=== PATIENT | female | born 1965 | race Caucasian/White ===

== ENCOUNTER 2018-04-01 18:06 | Emergency (ER) | payer MEDICARE, OTHER ==
[~2018-04-01] VITALS: Ht 162.6 cm; Wt 70.0 kg
[2018-04-01 18:13] VITALS: BP 130/80
[2018-04-01 18:56] LABS: RAPID INFLUENZA A Negative (Negative); RAPID INFLUENZA B Negative (Negative)
== END 2018-04-01 19:16 | disposition home or self-care (01) ==
LOC: ED 19:00
DX: J06.9 Acute upper respiratory infection, unspecified (principal); B34.9 Viral infection, unspecified; F17.200 Nicotine dependence, unspecified, uncomplicated; Z88.6 Allergy status to analgesic agent
CPT/HCPCS: 71046; 87400; 99284

== ENCOUNTER 2018-07-31 04:29 | Emergency (ER) | payer OTHER ==
[~2018-07-31] VITALS: Ht 162.6 cm; Wt 69.9 kg
--- NOTE | 2018-07-31 05:01 | NUR ---
PT PRESENTED WITH C/O PAINFUL URINATION. MONITORS APPLIED, SIDERAILS UP X2, CALL LIGHT WITHIN REACH
--- NOTE | 2018-07-31 05:06 | NUR ---
URINE SAMPLE TAKEN TO LAB
[2018-07-31] MEDS ORDERED: LIRA3PEN PO (05:16)
[2018-07-31 05:17] LABS: MICROSCOPIC AUTO
[2018-07-31] MEDS ORDERED: LORA-446 PO (05:18)
[2018-07-31] MEDS ORDERED: TRAZ50TA66 PO (05:18)
[2018-07-31] MEDS ORDERED: ZOLP10TA PO (05:18)
[2018-07-31] MEDS ORDERED: PHENAZOPYRIDINE 200 MG TABLET ONE (05:22)
--- NOTE | 2018-07-31 05:24 | NUR ---
PT MEDICATED PER MAR
[2018-07-31] MEDS ORDERED: PHENAZOPYRIDINE 200 MG TABLET PO ONE (05:30)
--- NOTE | 2018-07-31 05:49 | NUR ---
pt to ct
[2018-07-31 05:51] LABS: BASOPHILS # (AUTO) 0.07 x10^3/uL (0-0.1); BASOPHILS % (AUTO) 1 % (0-1); EOSINOPHILS # (AUTO) 0.17 x10^3/uL (0-0.4); EOSINOPHILS % (AUTO) 2 % (1-7); LYMPHOCYTES # (AUTO) 2.28 x10^3/uL (1-3.4); LYMPHOCYTES % (AUTO) 29 % (22-44); MD NO; MEAN CORPUSCULAR HEMOGLOBIN 30.7 pg (27.0-34.8); MEAN CORPUSCULAR HGB CONC 32.7 g/dL (32.4-35.8); MEAN CORPUSCULAR VOLUME 93.7 fL (80-100); MEAN PLATELET VOLUME 8.1 fL (7.4-10.4); MONOCYTES % (AUTO) 8 % (2-9); NEUTROPHILS # (AUTO) 4.79 x10^3/uL (1.8-6.8); NEUTROPHILS % (AUTO) 61 % (42-75); PLATELET COUNT 244 x10^3/uL (130-400); RED BLOOD COUNT 4.31 x10^6/uL (3.82-5.3); RED CELL DISTRIBUTION WIDTH 13.4 % (9.6-15.2)
[2018-07-31 05:58] LABS: ANION GAP 6 mmol/L (5-15); CALCIUM 8.7 mg/dL (8.5-10.1); CHLORIDE 110 mmol/L (98-107)
[2018-07-31 06:10] VITALS: BP 131/85
--- NOTE | 2018-07-31 06:10 | NUR ---
pt sitting up on gurney, denies needs, monitors in place, call light within reach. awaiting ct result
--- NOTE | 2018-07-31 07:02 | NUR ---
report given to nitin simmons
--- NOTE | 2018-07-31 07:09 | NUR ---
Patient given discharge instructions and they have confirmed that they understand the instructions. Patient ambulatory with steady gait.
== END 2018-07-31 07:10 | disposition home or self-care (01) ==
LOC: ED 07:05
DX: R30.0 Dysuria (principal); F10.220 Alcohol dependence with intoxication, uncomplicated; R31.9 Hematuria, unspecified; F17.210 Nicotine dependence, cigarettes, uncomplicated
CPT/HCPCS: 36415; 74176; 80048; 81001; 82040; 85025; 99284

== ENCOUNTER 2018-09-20 23:41 | Emergency (ER) | payer OTHER | END 2018-09-20 23:47 | disposition left against medical advice (07) | LOC: ED 23:42 | DX: Z53.21 Procedure and treatment not carried out due to patient leaving prior to being seen by health care provider (principal) ==

== ENCOUNTER 2018-10-05 21:20 | Emergency (ER) | payer OTHER ==
[~2018-10-05] VITALS: Ht 162.6 cm; Wt 68.4 kg
[2018-10-05 21:29] VITALS: BP 106/75
== END 2018-10-05 22:13 | disposition home or self-care (01) ==
LOC: ED 21:45
DX: R05 Cough (principal); F17.200 Nicotine dependence, unspecified, uncomplicated; F17.210 Nicotine dependence, cigarettes, uncomplicated
CPT/HCPCS: 99281; 99406

== ENCOUNTER 2018-10-24 04:42 | Emergency (ER) | payer OTHER ==
[~2018-10-24] VITALS: Ht 162.6 cm; Wt 66.7 kg
[~2018-10-24 04:42] MED LIST: LIRA3PEN PO; LORA-446 PO; TRAZ50TA66 PO; ZOLP10TA PO
--- NOTE | 2018-10-24 05:03 | NUR ---
PT. INSTRUCTED ON CLEAN CATCH UA, HAT PROVIDED FOR STOOL SAMPLE. PT. ATTEMPTING TO PROVIDE BOTH AT THIS TIME. PT. STATES "I HAVE HAD DIARRHEA FOR 3, 5, 2, 7, I DON'T EVEN KNOW HOW MANY DAYS BUT I DO KNOW I HAVE SALMONELLA".
--- NOTE | 2018-10-24 05:15 | NUR ---
STOOL AND URINE SAMPLES COLLECTED AND WALKED TO LAB. LACIE PONCE AT BS TO PANTERA PT. AND DISCUSS POC.
[2018-10-24] MEDS ORDERED: ONDANSETRON 2MG/ML, 2ML IVPush ONE (05:30)
[2018-10-24] MEDS ORDERED: SODIUM CHLORIDE FLUSH 10ML SYR IVF ONE (05:30)
[2018-10-24] MEDS ORDERED: MORPHINE SULFATE 4 MG/ML, 1ML IVPush PRN (05:30)
[2018-10-24 05:35] LABS: BASOPHILS # (AUTO) 0.04 x10^3/uL (0-0.1); BASOPHILS % (AUTO) 0 % (0-1); EOSINOPHILS # (AUTO) 0.43 x10^3/uL (0-0.4); EOSINOPHILS % (AUTO) 4 % (1-7); LYMPHOCYTES # (AUTO) 1.93 x10^3/uL (1-3.4); LYMPHOCYTES % (AUTO) 16 % (22-44); MD NO; MEAN CORPUSCULAR HGB CONC 33.1 g/dL (32.4-35.8); MEAN CORPUSCULAR VOLUME 96.7 fL (80-100); MEAN PLATELET VOLUME 7.4 fL (7.4-10.4); MONOCYTES # (AUTO) 0.87 x10^3/uL (0.2-0.8); MONOCYTES % (AUTO) 7 % (2-9); NEUTROPHILS # (AUTO) 9.11 x10^3/uL (1.8-6.8); NEUTROPHILS % (AUTO) 74 % (42-75); PLATELET COUNT 290 x10^3/uL (130-400); RED BLOOD COUNT 4.37 x10^6/uL (3.82-5.3); RED CELL DISTRIBUTION WIDTH 14.4 % (9.6-15.2)
--- NOTE | 2018-10-24 05:39 | NUR ---
PT. TO US VIA [facility].
[2018-10-24 05:48] LABS: CHLORIDE 111 mmol/L (98-107)
[2018-10-24 05:55] LABS: ALANINE AMINOTRANSFERASE 29 U/L (12-78); ALBUMIN 3.3 g/dL (3.4-5.0); ALKALINE PHOSPHATASE 91 U/L (45-117); ANION GAP 6 mmol/L (5-15); BILIRUBIN,TOTAL 0.3 mg/dL (0.2-1.0); CALCIUM 8.3 mg/dL (8.5-10.1); CREATININE 0.73 mg/dL (0.55-1.02); TOTAL PROTEIN 6.7 g/dL (6.4-8.2)
[2018-10-24 06:14] LABS: CULTURE INDICATED? YES; MICROSCOPIC INDICATED
--- NOTE | 2018-10-24 06:48 | NUR ---
RECEIVED BEDSIDE REPORT FROM CHRIS GARCIA
--- NOTE | 2018-10-24 07:11 | NUR ---
PT EDUCATED REGARDING D/C INFORMATION. PT ALSO EDUCATED REGARDING PRESCRIPTIONS. PT STATES "I DON'T HAVE MY INS CARD SO I WON'T GET THE MEDS." PT EDUCATED REGARDING THE IMPORTANCE OF ABX TREATMENT. 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 PT REQUESTS TO WALK TO DISCHARGE BY SELF WITHOUT ASSISTANCE. NO ACUTE DISTRESS NOTED.
[2018-10-24 07:13] VITALS: BP 95/65
--- NOTE | 2018-10-24 07:26 | NUR ---
PT LEFT WITH ALL PERSONAL BELONGINGS. PT WALKED TO D/C DESK
[2018-10-24 07:37] LABS: CLOSTRIDIUM DIFFICILE ANTIGEN NEGATIVE; CLOSTRIDIUM DIFFICILE TOXIN NEGATIVE (Negative)
== END 2018-10-24 07:28 | disposition home or self-care (01) ==
LOC: ED 05:39
DX: K52.9 Noninfective gastroenteritis and colitis, unspecified (principal); N30.00 Acute cystitis without hematuria; F17.200 Nicotine dependence, unspecified, uncomplicated
CPT/HCPCS: 36415; 76700; 80053; 81001; 83690; 85025; 87077; 87086; 87186; 87324; 89055; 99284

== ENCOUNTER 2019-04-06 07:59 | Emergency (ER) | payer OTHER ==
[~2019-04-06] VITALS: Ht 162.6 cm; Wt 67.0 kg
[2019-04-06 08:00] VITALS: BP 118/74
[2019-04-06 08:58] LABS: BASOPHILS # (AUTO) 0.05 x10^3/uL (0-0.1); BASOPHILS % (AUTO) 1 % (0-1); EOSINOPHILS # (AUTO) 0.15 x10^3/uL (0-0.4); EOSINOPHILS % (AUTO) 1 % (1-7); LYMPHOCYTES % (AUTO) 18 % (22-44); MD NO; MEAN CORPUSCULAR HEMOGLOBIN 31.5 pg (27.0-34.8); MEAN CORPUSCULAR HGB CONC 33.1 g/dL (32.4-35.8); MEAN CORPUSCULAR VOLUME 95.2 fL (80-100); MEAN PLATELET VOLUME 6.8 fL (7.4-10.4); MONOCYTES # (AUTO) 0.38 x10^3/uL (0.2-0.8); MONOCYTES % (AUTO) 4 % (2-9); NEUTROPHILS # (AUTO) 8.23 x10^3/uL (1.8-6.8); NEUTROPHILS % (AUTO) 77 % (42-75); PLATELET COUNT 355 x10^3/uL (130-400); RED BLOOD COUNT 4.69 x10^6/uL (3.82-5.3); RED CELL DISTRIBUTION WIDTH 13.9 % (9.6-15.2)
[2019-04-06 09:07] LABS: ALBUMIN 3.6 g/dL (3.4-5.0); ANION GAP 8 mmol/L (5-15); CHLORIDE 109 mmol/L (98-107); CREATININE 0.63 mg/dL (0.55-1.02); SALICYLATE LEVEL 4.7 mg/dL (2.8-20.0)
--- NOTE | 2019-04-06 10:03 | NUR ---
Report recieved from Guzman PEREZ. pt appears to be resting comfortably in bed with no signs of distress. Respiration un-impeeded. Sitter outside of room with clear view of pt. SI precautions maintianed.
[2019-04-06 10:10] LABS: AMPHETAMINE SCREEN, URINE Negative (Negative); BARBITURATE SCREEN, URINE Negative (Negative); BENZODIAZEPINE SCREEN, URINE Negative (Negative); CANNABINOID SCREEN, URINE Positive (Negative); COCAINE SCREEN, URINE Negative (Negative); METHADONE SCREEN, URINE Negative (Negative); OPIATE SCREEN, URINE Negative (Negative)
[2019-04-06 10:18] LABS: MICROSCOPIC INDICATED
[2019-04-06 10:29] LABS: CULTURE INDICATED? YES
--- NOTE | 2019-04-06 10:58 | NUR ---
MD at bedside discussing POC
[2019-04-06] MEDS ORDERED: CEFTRIAXONE 1,000 MG IM ONE (11:00)
[2019-04-06] MEDS ORDERED: HYDROXYZINE PAMOATE 50MG CAP PO PRN (11:30)
--- NOTE | 2019-04-06 12:30 | NUR ---
SI food tray given to pt. Sitter outside of room with unobstructed view of pt. SI precautions maintained. pt is a legal hold.
[2019-04-06] MEDS ORDERED: CEFTRIAXONE 1,000 MG ONE (12:44)
[2019-04-06] MEDS ORDERED: LIDOCAINE-MPF 1%, 2ML ONE (12:44)
--- NOTE | 2019-04-06 13:00 | NUR ---
Confirmed no Blood cultures prior to IM Rocephin administer. verablized no blood cultures, ok to give ABX now.
--- NOTE | 2019-04-06 15:52 | NUR ---
Report given to Radha. All questions and concerns addressed and answered.
[2019-04-06] MEDS ORDERED: MIRTAZAPINE 15 MG TABLET PO SCH (21:00)
== END 2019-04-06 17:04 ==
LOC: ED 09:00
DX: R45.851 Suicidal ideations (principal); N30.00 Acute cystitis without hematuria; B34.9 Viral infection, unspecified
CPT/HCPCS: 36415; 71046; 80048; 80307; 81001; 82040; 85025; 87077; 87086; 87186; 96372; 99285; J0696

== ENCOUNTER 2019-04-06 15:52 | Inpatient (IN) | payer MEDICARE ==
[~2019-04-06] VITALS: Ht 162.6 cm; Wt 73.3 kg
[2019-04-06] MEDS ORDERED: BISACODYL 10 MG SUPP PR PRN (16:30)
[2019-04-06] MEDS ORDERED: POLYETHYLENE GLYCOL 17 GM PACKET PO PRN (16:30)
[2019-04-06 17:54] VITALS: BP 115/75
[2019-04-06 18:20] LABS: CHOL/HDL RATIO 2.7; FREE T4 (FREE THYROXINE) 1.09 ng/dL (0.76-1.46); LDL/HDL RATIO 1.3 (0.5-3.0)
[2019-04-06 18:28] VITALS: BP 115/75
[2019-04-06 19:42] VITALS: BP 100/60
[2019-04-06] MEDS: NICOTINE 14MG/24 HR PATCH.TD24 TD SCH (19:48)
[2019-04-06] MEDS: MIRTAZAPINE 15 MG TABLET PO SCH (20:08)
[2019-04-07 01:15] LABS: ALANINE AMINOTRANSFERASE 27 U/L (12-78)
[2019-04-07 01:18] LABS: ALKALINE PHOSPHATASE 112 U/L (45-117); BILIRUBIN,TOTAL 0.2 mg/dL (0.2-1.0); TOTAL PROTEIN 7.2 g/dL (6.4-8.2)
[2019-04-07 01:20] LABS: ALBUMIN 3.6 g/dL (3.4-5.0); BILIRUBIN, DIRECT < 0.1 mg/dL (0.1-0.2); BILIRUBIN,INDIRECT 0.1 mg/dL (0.0-2.0)
[2019-04-07 07:30] VITALS: BP 116/76
[2019-04-07] MEDS: HYDROXYZINE PAMOATE 50MG CAP PO PRN ×2 (08:16→12:50)
[2019-04-07] MEDS: ACETAMINOPHEN 325 MG TABLET PO PRN ×3 (08:16→20:11)
[2019-04-07] MEDS: CEFDINIR 300 MG CAPSULE PO SCH ×2 (08:43→20:11)
[2019-04-07] MEDS ORDERED: TRAZODONE 50MG TABLET PO PRN (14:30)
[2019-04-07] MEDS ORDERED: OMNIPAQUE 350 MG/ML, 100ML BOTTLE ONE (15:10)
[2019-04-07 19:28] VITALS: BP 120/74
[2019-04-07] MEDS: NICOTINE 14MG/24 HR PATCH.TD24 TD SCH (19:57)
[2019-04-07] MEDS: PRAZOSIN 1 MG CAPSULE PO SCH (20:11)
[2019-04-07] MEDS: MIRTAZAPINE 15 MG TABLET PO SCH (20:12)
[2019-04-08 07:16] VITALS: BP 105/63
[2019-04-08] MEDS: CEFDINIR 300 MG CAPSULE PO SCH ×2 (10:14→20:21)
[2019-04-08] MEDS: NICOTINE 14MG/24 HR PATCH.TD24 TD SCH (10:15)
[2019-04-08] MEDS: HYDROXYZINE PAMOATE 50MG CAP PO PRN (10:21)
[2019-04-08] MEDS: ACETAMINOPHEN 325 MG TABLET PO PRN ×2 (10:28→14:48)
[2019-04-08] MEDS: METHOCARBAMOL 500 MG TABLET PO PRN ×2 (14:48→20:21)
[2019-04-08 19:42] VITALS: BP 118/79
[2019-04-08] MEDS ORDERED: ZOLPIDEM 5MG TABLET ONE (20:11)
[2019-04-08] MEDS: MIRTAZAPINE 15 MG TABLET PO SCH (20:22)
[2019-04-08] MEDS: PRAZOSIN 1 MG CAPSULE PO SCH (20:22)
[2019-04-09 07:26] VITALS: BP 107/72
[2019-04-09] MEDS: CEFDINIR 300 MG CAPSULE PO SCH ×2 (08:23→20:42)
[2019-04-09] MEDS: NICOTINE 14MG/24 HR PATCH.TD24 TD SCH (08:25)
[2019-04-09] MEDS: METHOCARBAMOL 500 MG TABLET PO PRN ×2 (08:31→20:42)
[2019-04-09] MEDS: ACETAMINOPHEN 325 MG TABLET PO PRN (08:32)
[2019-04-09 19:36] VITALS: BP 108/75
[2019-04-09] MEDS ORDERED: ZOLPIDEM 5MG TABLET ONE (20:40)
[2019-04-09] MEDS: PRAZOSIN 1 MG CAPSULE PO SCH (20:43)
[2019-04-09] MEDS: MIRTAZAPINE 15 MG TABLET PO SCH (20:44)
[2019-04-09] MEDS ORDERED: RISPERIDONE 1 MG TABLET PO SCH (21:00)
[2019-04-10 07:25] VITALS: BP 114/81
[2019-04-10] MEDS: NICOTINE 14MG/24 HR PATCH.TD24 TD SCH (08:07)
[2019-04-10] MEDS: HYDROXYZINE PAMOATE 50MG CAP PO PRN ×3 (08:07→20:32)
[2019-04-10] MEDS: CEFDINIR 300 MG CAPSULE PO SCH ×2 (08:08→20:32)
[2019-04-10] MEDS: METHOCARBAMOL 500 MG TABLET PO PRN ×3 (08:08→20:32)
[2019-04-10] MEDS: ACETAMINOPHEN 325 MG TABLET PO PRN (14:35)
[2019-04-10 19:56] VITALS: BP 104/68
[2019-04-10] MEDS: TRAZODONE 50MG TABLET PO PRN (20:32)
[2019-04-10] MEDS: PRAZOSIN 1 MG CAPSULE PO SCH (20:32)
[2019-04-10] MEDS: MIRTAZAPINE 15 MG TABLET PO SCH (20:33)
[2019-04-10] MEDS ORDERED: ZOLPIDEM 5MG TABLET ONE (22:56)
[2019-04-10] MEDS: ZOLPIDEM 10MG TABLET PO PRN (22:58)
[2019-04-11 07:07] VITALS: BP 96/67
[2019-04-11] MEDS: NICOTINE 14MG/24 HR PATCH.TD24 TD SCH (08:20)
[2019-04-11] MEDS: METHOCARBAMOL 500 MG TABLET PO PRN ×2 (08:20→18:25)
[2019-04-11] MEDS: ACETAMINOPHEN 325 MG TABLET PO PRN ×2 (08:20→18:25)
[2019-04-11] MEDS: HYDROXYZINE PAMOATE 50MG CAP PO PRN ×2 (08:20→18:25)
[2019-04-11 19:28] VITALS: BP 107/75
[2019-04-11] MEDS ORDERED: ZOLPIDEM 5MG TABLET ONE (20:25)
[2019-04-11] MEDS: PRAZOSIN 1 MG CAPSULE PO SCH (20:42)
[2019-04-11] MEDS: MIRTAZAPINE 15 MG TABLET PO SCH (20:42)
[2019-04-11] MEDS: TRAZODONE 50MG TABLET PO PRN (20:43)
[2019-04-11] MEDS: ZOLPIDEM 10MG TABLET PO PRN (20:43)
[2019-04-12 07:53] VITALS: BP 95/60
[2019-04-12] MEDS: NICOTINE 14MG/24 HR PATCH.TD24 TD SCH (08:58)
[2019-04-12] MEDS: HYDROXYZINE PAMOATE 50MG CAP PO PRN ×2 (08:58→14:06)
[2019-04-12] MEDS: ACETAMINOPHEN 325 MG TABLET PO PRN ×3 (08:58→21:54)
[2019-04-12] MEDS: METHOCARBAMOL 500 MG TABLET PO PRN ×3 (08:58→21:54)
[2019-04-12 19:50] VITALS: BP 111/71
[2019-04-12] MEDS ORDERED: ZOLPIDEM 5MG TABLET ONE (20:19)
[2019-04-12] MEDS: PRAZOSIN 1 MG CAPSULE PO SCH (20:55)
[2019-04-12] MEDS: MIRTAZAPINE 15 MG TABLET PO SCH (20:56)
[2019-04-12] MEDS: TRAZODONE 50MG TABLET PO PRN (20:56)
[2019-04-13 07:16] VITALS: BP 103/69
[2019-04-13] MEDS: NICOTINE 14MG/24 HR PATCH.TD24 TD SCH (09:01)
[2019-04-13] MEDS: ACETAMINOPHEN 325 MG TABLET PO PRN ×3 (09:20→22:14)
[2019-04-13] MEDS: METHOCARBAMOL 500 MG TABLET PO PRN ×3 (09:20→22:15)
[2019-04-13] MEDS ORDERED: HYDROXYZINE PAMOATE 25MG CAP ONE ×2 (09:28→15:19)
[2019-04-13] MEDS: HYDROXYZINE PAMOATE 50MG CAP PO PRN ×3 (09:29→22:31)
[2019-04-13 19:51] VITALS: BP 105/71
[2019-04-13] MEDS ORDERED: ZOLPIDEM 5MG TABLET ONE (20:33)
[2019-04-13] MEDS: PRAZOSIN 1 MG CAPSULE PO SCH (20:36)
[2019-04-13] MEDS: TRAZODONE 50MG TABLET PO PRN (20:36)
[2019-04-13] MEDS: ZOLPIDEM 10MG TABLET PO PRN (20:36)
[2019-04-13] MEDS: MIRTAZAPINE 15 MG TABLET PO SCH (21:04)
[2019-04-14 07:19] VITALS: BP 112/78
[2019-04-14] MEDS: ACETAMINOPHEN 325 MG TABLET PO PRN ×2 (08:14→16:36)
[2019-04-14] MEDS: HYDROXYZINE PAMOATE 50MG CAP PO PRN ×2 (08:14→16:36)
[2019-04-14] MEDS: NICOTINE 14MG/24 HR PATCH.TD24 TD SCH (08:14)
[2019-04-14] MEDS: METHOCARBAMOL 500 MG TABLET PO PRN ×2 (08:14→16:36)
[2019-04-14 19:23] VITALS: BP 129/86
[2019-04-14] MEDS: TRAZODONE 50MG TABLET PO PRN (20:25)
[2019-04-14] MEDS: ZOLPIDEM 10MG TABLET PO PRN (20:25)
[2019-04-14] MEDS: PRAZOSIN 1 MG CAPSULE PO SCH (20:25)
[2019-04-14] MEDS: MIRTAZAPINE 15 MG TABLET PO SCH (20:26)
[2019-04-15] MEDS ORDERED: HYDROXYZINE PAMOATE 25MG CAP ONE (04:42)
[2019-04-15] MEDS: METHOCARBAMOL 500 MG TABLET PO PRN ×3 (04:45→16:50)
[2019-04-15] MEDS: ACETAMINOPHEN 325 MG TABLET PO PRN ×3 (04:45→16:50)
[2019-04-15] MEDS: HYDROXYZINE PAMOATE 50MG CAP PO PRN ×2 (04:46→09:03)
[2019-04-15 07:19] VITALS: BP 99/66
[2019-04-15] MEDS: NICOTINE 14MG/24 HR PATCH.TD24 TD SCH (08:21)
[2019-04-15 19:01] VITALS: BP 116/79
[2019-04-15] MEDS: PRAZOSIN 1 MG CAPSULE PO SCH (20:27)
[2019-04-15] MEDS: ZOLPIDEM 10MG TABLET PO PRN (20:27)
[2019-04-15] MEDS: TRAZODONE 50MG TABLET PO PRN (20:27)
[2019-04-15] MEDS: MIRTAZAPINE 15 MG TABLET PO SCH (20:28)
[2019-04-16] MEDS: METHOCARBAMOL 500 MG TABLET PO PRN ×3 (00:23→21:36)
[2019-04-16 07:44] VITALS: BP 111/68
[2019-04-16] MEDS: NICOTINE 14MG/24 HR PATCH.TD24 TD SCH (08:47)
[2019-04-16] MEDS: ONDANSETRON ODT 4 MG PO PRN (17:54)
[2019-04-16] MEDS: ACETAMINOPHEN 325 MG TABLET PO PRN (17:54)
[2019-04-16 19:48] VITALS: BP 108/70
[2019-04-16] MEDS: MIRTAZAPINE 15 MG TABLET PO SCH (21:36)
[2019-04-16] MEDS: TRAZODONE 50MG TABLET PO PRN (21:36)
[2019-04-16] MEDS: ZOLPIDEM 10MG TABLET PO PRN (21:36)
[2019-04-16] MEDS: PRAZOSIN 1 MG CAPSULE PO SCH (21:37)
[2019-04-17] MEDS: METHOCARBAMOL 500 MG TABLET PO PRN ×2 (05:52→20:09)
[2019-04-17] MEDS: ACETAMINOPHEN 325 MG TABLET PO PRN ×2 (05:53→20:09)
[2019-04-17 07:20] VITALS: BP 92/58
[2019-04-17] MEDS: NICOTINE 14MG/24 HR PATCH.TD24 TD SCH (08:35)
[2019-04-17] MEDS: ONDANSETRON ODT 4 MG PO PRN ×2 (11:11→20:10)
[2019-04-17 19:35] VITALS: BP 116/74
[2019-04-17] MEDS: TRAZODONE 50MG TABLET PO PRN (20:09)
[2019-04-17] MEDS: ZIPRASIDONE 40MG CAPSULE PO SCH (20:10)
[2019-04-17] MEDS: ZOLPIDEM 10MG TABLET PO PRN (20:10)
[2019-04-17] MEDS: PRAZOSIN 1 MG CAPSULE PO SCH (20:18)
[2019-04-18] MEDS: METHOCARBAMOL 500 MG TABLET PO PRN ×3 (06:16→20:36)
[2019-04-18 07:23] VITALS: BP 97/66
[2019-04-18] MEDS: ONDANSETRON ODT 4 MG PO PRN (09:07)
[2019-04-18] MEDS: ACETAMINOPHEN 325 MG TABLET PO PRN (09:07)
[2019-04-18] MEDS: NICOTINE 14MG/24 HR PATCH.TD24 TD SCH (09:08)
[2019-04-18 19:52] VITALS: BP 117/76
[2019-04-18] MEDS: ZOLPIDEM 10MG TABLET PO PRN (20:35)
[2019-04-18] MEDS: PRAZOSIN 1 MG CAPSULE PO SCH (20:36)
[2019-04-18] MEDS: ZIPRASIDONE 40MG CAPSULE PO SCH (20:37)
[2019-04-18] MEDS: TRAZODONE 50MG TABLET PO PRN (20:38)
[2019-04-19 07:16] VITALS: BP 109/72
[2019-04-19] MEDS: METHOCARBAMOL 500 MG TABLET PO PRN ×2 (08:09→14:07)
[2019-04-19] MEDS: ACETAMINOPHEN 325 MG TABLET PO PRN ×3 (08:09→20:56)
[2019-04-19] MEDS: DOCUSATE 100 MG CAPSULE PO PRN (08:09)
[2019-04-19] MEDS: NICOTINE 14MG/24 HR PATCH.TD24 TD SCH (08:11)
[2019-04-19] MEDS: ONDANSETRON ODT 4 MG PO PRN (14:09)
[2019-04-19] MEDS ORDERED: HYDROCORTISONE OINT 0.5%, 30GM TP PRN (15:30)
[2019-04-19 19:50] VITALS: BP 125/79
[2019-04-19] MEDS: ZOLPIDEM 10MG TABLET PO PRN (20:56)
[2019-04-19] MEDS: PRAZOSIN 1 MG CAPSULE PO SCH (20:57)
[2019-04-19] MEDS: TRAZODONE 50MG TABLET PO PRN (20:57)
[2019-04-19] MEDS: ZIPRASIDONE 40MG CAPSULE PO SCH (20:57)
[2019-04-20] MEDS: METHOCARBAMOL 500 MG TABLET PO PRN ×3 (04:21→20:52)
[2019-04-20 07:29] VITALS: BP 100/64
[2019-04-20] MEDS: NICOTINE 14MG/24 HR PATCH.TD24 TD SCH (09:15)
[2019-04-20] MEDS: ONDANSETRON ODT 4 MG PO PRN (10:24)
[2019-04-20] MEDS: ACETAMINOPHEN 325 MG TABLET PO PRN ×2 (10:24→20:53)
[2019-04-20 19:15] VITALS: BP 105/72
[2019-04-20] MEDS: ZIPRASIDONE 40MG CAPSULE PO SCH (20:52)
[2019-04-20] MEDS: PRAZOSIN 1 MG CAPSULE PO SCH (20:52)
[2019-04-20] MEDS: TRAZODONE 50MG TABLET PO PRN (20:52)
[2019-04-20] MEDS: ZOLPIDEM 10MG TABLET PO PRN (20:53)
[2019-04-20] MEDS: HYDROCORTISONE CRM 0.5%, 30GM TP PRN (21:33)
[2019-04-21] MEDS: METHOCARBAMOL 500 MG TABLET PO PRN ×3 (06:19→20:50)
[2019-04-21 07:19] VITALS: BP 95/59
[2019-04-21] MEDS: NICOTINE 14MG/24 HR PATCH.TD24 TD SCH (08:28)
[2019-04-21] MEDS: DOCUSATE 100 MG CAPSULE PO PRN (12:50)
[2019-04-21] MEDS: ONDANSETRON ODT 4 MG PO PRN (14:29)
[2019-04-21] MEDS: ACETAMINOPHEN 325 MG TABLET PO PRN (17:58)
[2019-04-21 19:25] VITALS: BP 98/65
[2019-04-21] MEDS: PRAZOSIN 1 MG CAPSULE PO SCH (20:50)
[2019-04-21] MEDS: ZOLPIDEM 10MG TABLET PO PRN (20:50)
[2019-04-21] MEDS: TRAZODONE 50MG TABLET PO PRN (20:50)
[2019-04-21] MEDS: ZIPRASIDONE 40MG CAPSULE PO SCH (20:50)
[2019-04-22 07:30] VITALS: BP 106/70
[2019-04-22] MEDS: ACETAMINOPHEN 325 MG TABLET PO PRN (07:58)
[2019-04-22] MEDS: NICOTINE 14MG/24 HR PATCH.TD24 TD SCH (07:58)
[2019-04-22] MEDS: METHOCARBAMOL 500 MG TABLET PO PRN ×2 (13:07→20:46)
[2019-04-22] MEDS: ONDANSETRON ODT 4 MG PO PRN (13:10)
[2019-04-22 19:50] VITALS: BP 97/64
[2019-04-22] MEDS: ZIPRASIDONE 40MG CAPSULE PO SCH (20:45)
[2019-04-22] MEDS: ZOLPIDEM 10MG TABLET PO PRN (20:45)
[2019-04-22] MEDS: TRAZODONE 50MG TABLET PO PRN (20:45)
[2019-04-22] MEDS: PRAZOSIN 1 MG CAPSULE PO SCH (20:46)
[2019-04-23 07:26] VITALS: BP 113/75
[2019-04-23] MEDS: NICOTINE 14MG/24 HR PATCH.TD24 TD SCH (09:05)
[2019-04-23] MEDS: METHOCARBAMOL 500 MG TABLET PO PRN ×2 (09:06→15:55)
[2019-04-23] MEDS: ACETAMINOPHEN 325 MG TABLET PO PRN ×2 (09:10→13:27)
[2019-04-23 19:41] VITALS: BP 126/83
[2019-04-23] MEDS: PRAZOSIN 1 MG CAPSULE PO SCH (20:27)
[2019-04-23] MEDS: ZOLPIDEM 10MG TABLET PO PRN (20:27)
[2019-04-23] MEDS: ZIPRASIDONE 40MG CAPSULE PO SCH (20:28)
[2019-04-23] MEDS: TRAZODONE 50MG TABLET PO PRN (20:28)
[2019-04-24] MEDS: NICOTINE 14MG/24 HR PATCH.TD24 TD SCH (08:04)
[2019-04-24] MEDS: ACETAMINOPHEN 325 MG TABLET PO PRN ×2 (08:04→17:25)
[2019-04-24] MEDS: METHOCARBAMOL 500 MG TABLET PO PRN ×2 (08:04→17:25)
[2019-04-24] MEDS: HYDROCORTISONE CRM 0.5%, 30GM TP PRN (08:05)
[2019-04-24] MEDS: DOCUSATE 100 MG CAPSULE PO PRN (08:10)
[2019-04-24 08:14] VITALS: BP 105/74
[2019-04-24 19:51] VITALS: BP 117/75
[2019-04-24] MEDS: ZOLPIDEM 10MG TABLET PO PRN (20:25)
[2019-04-24] MEDS: TRAZODONE 50MG TABLET PO PRN (20:25)
[2019-04-24] MEDS: ZIPRASIDONE 40MG CAPSULE PO SCH (20:25)
[2019-04-24] MEDS: PRAZOSIN 1 MG CAPSULE PO SCH (20:48)
[2019-04-25] MEDS: METHOCARBAMOL 500 MG TABLET PO PRN ×3 (02:04→17:08)
[2019-04-25] MEDS: HYDROCORTISONE CRM 0.5%, 30GM TP PRN ×2 (07:32→19:48)
[2019-04-25 07:40] VITALS: BP 106/73
[2019-04-25] MEDS: NICOTINE 14MG/24 HR PATCH.TD24 TD SCH (09:28)
[2019-04-25 19:46] VITALS: BP 90/60
[2019-04-25] MEDS: ACETAMINOPHEN 325 MG TABLET PO PRN (19:48)
[2019-04-25] MEDS: DOCUSATE 100 MG CAPSULE PO PRN (19:48)
[2019-04-25] MEDS: ZIPRASIDONE 40MG CAPSULE PO SCH (19:48)
[2019-04-25] MEDS: PRAZOSIN 1 MG CAPSULE PO SCH (19:48)
[2019-04-25] MEDS: TRAZODONE 50MG TABLET PO PRN (19:48)
[2019-04-25] MEDS: ZOLPIDEM 10MG TABLET PO PRN (19:49)
[2019-04-26] MEDS: ACETAMINOPHEN 325 MG TABLET PO PRN (06:01)
[2019-04-26] MEDS: METHOCARBAMOL 500 MG TABLET PO PRN ×3 (06:01→21:00)
[2019-04-26 07:42] VITALS: BP 101/69
[2019-04-26] MEDS: NICOTINE 14MG/24 HR PATCH.TD24 TD SCH (11:02)
[2019-04-26] MEDS: HYDROXYZINE PAMOATE 50MG CAP PO PRN ×2 (12:43→21:00)
[2019-04-26 19:33] VITALS: BP 113/74
[2019-04-26] MEDS: ZIPRASIDONE 40MG CAPSULE PO SCH (20:16)
[2019-04-26] MEDS: ZOLPIDEM 10MG TABLET PO PRN (20:17)
[2019-04-26] MEDS: PRAZOSIN 1 MG CAPSULE PO SCH (20:17)
[2019-04-26] MEDS: TRAZODONE 50MG TABLET PO PRN (20:18)
[2019-04-27] MEDS: METHOCARBAMOL 500 MG TABLET PO PRN ×3 (04:18→21:19)
[2019-04-27] MEDS: HYDROXYZINE PAMOATE 50MG CAP PO PRN ×3 (04:18→21:19)
[2019-04-27] MEDS: ACETAMINOPHEN 325 MG TABLET PO PRN ×2 (04:18→20:07)
[2019-04-27 07:39] VITALS: BP 103/66
[2019-04-27] MEDS: HYDROCORTISONE CRM 0.5%, 30GM TP PRN ×2 (08:49→20:10)
[2019-04-27] MEDS: ONDANSETRON ODT 4 MG PO PRN (08:49)
[2019-04-27] MEDS: NICOTINE 14MG/24 HR PATCH.TD24 TD SCH (08:49)
[2019-04-27 19:15] VITALS: BP 103/70
[2019-04-27] MEDS: TRAZODONE 50MG TABLET PO PRN (20:06)
[2019-04-27] MEDS: ZIPRASIDONE 40MG CAPSULE PO SCH (20:06)
[2019-04-27] MEDS: ZOLPIDEM 10MG TABLET PO PRN (20:07)
[2019-04-27] MEDS: PRAZOSIN 1 MG CAPSULE PO SCH (20:07)
[2019-04-27] MEDS: DOCUSATE 100 MG CAPSULE PO PRN (20:08)
[2019-04-28] MEDS: METHOCARBAMOL 500 MG TABLET PO PRN ×3 (04:10→20:31)
[2019-04-28] MEDS: HYDROXYZINE PAMOATE 50MG CAP PO PRN ×3 (04:10→20:31)
[2019-04-28] MEDS: ACETAMINOPHEN 325 MG TABLET PO PRN (04:10)
[2019-04-28 07:21] VITALS: BP 99/66
[2019-04-28] MEDS: DOCUSATE 100 MG CAPSULE PO PRN (09:42)
[2019-04-28] MEDS: HYDROCORTISONE CRM 0.5%, 30GM TP PRN ×2 (09:42→17:58)
[2019-04-28] MEDS: NICOTINE 14MG/24 HR PATCH.TD24 TD SCH (09:42)
[2019-04-28] MEDS: PRAZOSIN 1 MG CAPSULE PO SCH (19:55)
[2019-04-28] MEDS: ZIPRASIDONE 40MG CAPSULE PO SCH (19:55)
[2019-04-28] MEDS: TRAZODONE 50MG TABLET PO PRN (19:55)
[2019-04-28] MEDS: ZOLPIDEM 10MG TABLET PO PRN (19:55)
[2019-04-28 20:02] VITALS: BP 120/82
[2019-04-29] MEDS: HYDROXYZINE PAMOATE 50MG CAP PO PRN ×2 (05:57→19:56)
[2019-04-29] MEDS: METHOCARBAMOL 500 MG TABLET PO PRN ×3 (05:57→23:54)
[2019-04-29 07:15] VITALS: BP 106/69
[2019-04-29] MEDS: HYDROCORTISONE CRM 0.5%, 30GM TP PRN (08:31)
[2019-04-29] MEDS: ONDANSETRON ODT 4 MG PO PRN (08:32)
[2019-04-29] MEDS: NICOTINE 14MG/24 HR PATCH.TD24 TD SCH (08:32)
[2019-04-29] MEDS: DOCUSATE 100 MG CAPSULE PO PRN (08:32)
[2019-04-29] MEDS: LORazepam 0.5MG TABLET PO PRN ×2 (14:18→23:54)
[2019-04-29] MEDS: ACETAMINOPHEN 325 MG TABLET PO PRN (14:33)
[2019-04-29] MEDS: ZIPRASIDONE 40MG CAPSULE PO SCH (19:56)
[2019-04-29] MEDS: PRAZOSIN 1 MG CAPSULE PO SCH (19:56)
[2019-04-29] MEDS: ZOLPIDEM 10MG TABLET PO PRN (19:56)
[2019-04-29] MEDS: TRAZODONE 50MG TABLET PO PRN (19:56)
[2019-04-29 20:14] VITALS: BP 104/71
[2019-04-30] MEDS: METHOCARBAMOL 500 MG TABLET PO PRN ×3 (08:26→22:04)
[2019-04-30] MEDS: LORazepam 0.5MG TABLET PO PRN ×3 (08:26→22:04)
[2019-04-30] MEDS: NICOTINE 14MG/24 HR PATCH.TD24 TD SCH (08:27)
[2019-04-30 08:55] VITALS: BP 111/71
[2019-04-30 19:42] VITALS: BP 97/55
[2019-04-30] MEDS: ZOLPIDEM 10MG TABLET PO PRN (20:58)
[2019-04-30] MEDS: ZIPRASIDONE 40MG CAPSULE PO SCH (20:58)
[2019-04-30] MEDS: HYDROXYZINE PAMOATE 50MG CAP PO PRN (20:58)
[2019-04-30] MEDS: PRAZOSIN 1 MG CAPSULE PO SCH (20:58)
[2019-04-30] MEDS: TRAZODONE 50MG TABLET PO PRN (20:59)
[2019-05-01 07:09] VITALS: BP 108/76
[2019-05-01] MEDS: METHOCARBAMOL 500 MG TABLET PO PRN ×2 (08:43→20:28)
[2019-05-01] MEDS: NICOTINE 14MG/24 HR PATCH.TD24 TD SCH (08:43)
[2019-05-01] MEDS: DOCUSATE 100 MG CAPSULE PO PRN (08:43)
[2019-05-01] MEDS: LORazepam 0.5MG TABLET PO PRN ×2 (08:43→20:28)
[2019-05-01] MEDS: HYDROCORTISONE CRM 0.5%, 30GM TP PRN (08:50)
[2019-05-01] MEDS: HYDROXYZINE PAMOATE 50MG CAP PO PRN (15:30)
[2019-05-01 19:25] VITALS: BP 107/71
[2019-05-01] MEDS: TRAZODONE 50MG TABLET PO PRN (20:28)
[2019-05-01] MEDS: ZIPRASIDONE 40MG CAPSULE PO SCH (20:28)
[2019-05-01] MEDS: ZOLPIDEM 10MG TABLET PO PRN (20:28)
[2019-05-01] MEDS: PRAZOSIN 1 MG CAPSULE PO SCH (20:29)
[2019-05-02] MEDS: LORazepam 0.5MG TABLET PO PRN ×2 (02:48→12:36)
[2019-05-02] MEDS: METHOCARBAMOL 500 MG TABLET PO PRN ×2 (02:48→12:36)
[2019-05-02 07:10] VITALS: BP 98/65
[2019-05-02] MEDS: NICOTINE 14MG/24 HR PATCH.TD24 TD SCH (08:14)
[2019-05-02] MEDS: HYDROXYZINE PAMOATE 50MG CAP PO PRN ×2 (08:17→16:37)
[2019-05-02] MEDS: DOCUSATE 100 MG CAPSULE PO PRN (08:17)
[2019-05-02] MEDS: ACETAMINOPHEN 325 MG TABLET PO PRN ×2 (08:17→12:39)
[2019-05-02] MEDS: HYDROCORTISONE CRM 0.5%, 30GM TP PRN (08:18)
[2019-05-02 20:45] VITALS: BP 99/68
[2019-05-02] MEDS: ZOLPIDEM 10MG TABLET PO PRN (20:48)
[2019-05-02] MEDS: ZIPRASIDONE 40MG CAPSULE PO SCH (21:00)
[2019-05-02] MEDS: PRAZOSIN 1 MG CAPSULE PO SCH (21:04)
[2019-05-03] MEDS: ACETAMINOPHEN 325 MG TABLET PO PRN ×2 (04:59→20:06)
[2019-05-03] MEDS: METHOCARBAMOL 500 MG TABLET PO PRN ×3 (04:59→20:06)
[2019-05-03] MEDS: LORazepam 0.5MG TABLET PO PRN ×3 (04:59→20:07)
[2019-05-03 07:16] VITALS: BP 113/78
[2019-05-03] MEDS: DOCUSATE 100 MG CAPSULE PO PRN (08:59)
[2019-05-03] MEDS: HYDROXYZINE PAMOATE 50MG CAP PO PRN (08:59)
[2019-05-03] MEDS: HYDROCORTISONE CRM 0.5%, 30GM TP PRN (09:03)
[2019-05-03] MEDS: NICOTINE 14MG/24 HR PATCH.TD24 TD SCH (09:09)
[2019-05-03 19:18] VITALS: BP 116/77
[2019-05-03] MEDS: ZIPRASIDONE 40MG CAPSULE PO SCH (20:06)
[2019-05-03] MEDS: PRAZOSIN 1 MG CAPSULE PO SCH (20:06)
[2019-05-03] MEDS: ZOLPIDEM 10MG TABLET PO PRN (20:07)
[2019-05-03] MEDS: TRAZODONE 50MG TABLET PO PRN (20:19)
[2019-05-04] MEDS: METHOCARBAMOL 500 MG TABLET PO PRN ×2 (06:09→15:04)
[2019-05-04] MEDS: LORazepam 0.5MG TABLET PO PRN ×2 (06:09→15:04)
[2019-05-04] MEDS: ACETAMINOPHEN 325 MG TABLET PO PRN (06:09)
[2019-05-04 07:28] VITALS: BP 109/73
[2019-05-04] MEDS: NICOTINE 14MG/24 HR PATCH.TD24 TD SCH (08:26)
[2019-05-04] MEDS: HYDROXYZINE PAMOATE 50MG CAP PO PRN ×2 (08:26→19:48)
[2019-05-04 19:00] VITALS: BP 100/60
[2019-05-04] MEDS: PRAZOSIN 1 MG CAPSULE PO SCH (20:37)
[2019-05-04] MEDS: ZOLPIDEM 10MG TABLET PO PRN (20:37)
[2019-05-04] MEDS: TRAZODONE 50MG TABLET PO PRN (20:38)
[2019-05-04] MEDS: ZIPRASIDONE 40MG CAPSULE PO SCH (21:05)
[2019-05-05] MEDS: METHOCARBAMOL 500 MG TABLET PO PRN ×3 (01:36→17:57)
[2019-05-05] MEDS: LORazepam 0.5MG TABLET PO PRN ×3 (01:36→17:57)
[2019-05-05 07:36] VITALS: BP 99/68
[2019-05-05] MEDS: NICOTINE 14MG/24 HR PATCH.TD24 TD SCH (09:04)
[2019-05-05] MEDS: ACETAMINOPHEN 325 MG TABLET PO PRN (09:05)
[2019-05-05] MEDS: HYDROCORTISONE CRM 0.5%, 30GM TP PRN ×2 (09:05→17:58)
[2019-05-05] MEDS ORDERED: NICO-486 TD (14:35)
[2019-05-05] MEDS ORDERED: PRAZ1CAP2 PO (14:35)
[2019-05-05] MEDS ORDERED: LORA-445 PO (14:35)
[2019-05-05] MEDS ORDERED: METH500T7 PO (14:35)
[2019-05-05] MEDS ORDERED: HYDR50CA2 PO (14:35)
[2019-05-05] MEDS ORDERED: ZOLP10TA PO (14:35)
[2019-05-05 19:00] VITALS: BP 104/69
[2019-05-05] MEDS: HYDROXYZINE PAMOATE 50MG CAP PO PRN (20:39)
[2019-05-05] MEDS: TRAZODONE 50MG TABLET PO PRN (20:39)
[2019-05-05] MEDS: ZOLPIDEM 10MG TABLET PO PRN (20:39)
[2019-05-05] MEDS: PRAZOSIN 1 MG CAPSULE PO SCH (20:39)
[2019-05-05] MEDS: ZIPRASIDONE 40MG CAPSULE PO SCH ×3 (20:40→20:42)
[2019-05-06] MEDS: LORazepam 0.5MG TABLET PO PRN (06:32)
[2019-05-06] MEDS: METHOCARBAMOL 500 MG TABLET PO PRN (06:32)
[2019-05-06] MEDS: NICOTINE 14MG/24 HR PATCH.TD24 TD SCH (08:58)
[2019-05-06] MEDS: HYDROCORTISONE CRM 0.5%, 30GM TP PRN (08:58)
== END 2019-05-06 10:25 | disposition home or self-care (01) | DRG 885 ==
LOC: 3E 17:00
PROVIDERS: ADMIT Psychiatry & Neurology Psychosomatic Medicine; ATTEND Psychiatry & Neurology Psychosomatic Medicine
DX: F31.30 Bipolar disorder, current episode depressed, mild or moderate severity, unspecified (principal); N39.0 Urinary tract infection, site not specified; F43.10 Post-traumatic stress disorder, unspecified; F12.90 Cannabis use, unspecified, uncomplicated; F17.200 Nicotine dependence, unspecified, uncomplicated; F41.1 Generalized anxiety disorder; G47.00 Insomnia, unspecified; Z91.5 Personal history of self-harm; Z98.51 Tubal ligation status; Z82.0 Family history of epilepsy and other diseases of the nervous system; Z79.899 Other long term (current) drug therapy; Z72.89 Other problems related to lifestyle; Z88.8 Allergy status to other drugs, medicaments and biological substances
CPT/HCPCS: 36415; 71275; 80061; 80076; 82607; 84439; 84443; 85379; 93005; Q0162; Q9967; Q0177

== ENCOUNTER 2019-05-17 14:59 | Emergency (ER) | payer MEDICARE ==
[~2019-05-17] VITALS: Ht 162.6 cm; Wt 72.0 kg
[~2019-05-17 14:59] MED LIST changes: +HYDR50CA2 PO; +LORA-445 PO; +METH500T7 PO; +NICO-486 TD; +PRAZ1CAP2 PO
--- NOTE | 2019-05-17 15:29 | NUR ---
FIRST CONTACT WITH PT. PT STATES "I'M SUICIDAL. I HAVE A PLAN TO SLIT MY THROAT. OR ELSE I WOULDN'T BE HERE." PT'S AOX4. RESPS EVEN AND UNLABORED. PT DENIES ANY PHYSICAL SYMPTOMS. 2 BAGS OF BELONGINGS INTO LOCKER BY EMT.
--- NOTE | 2019-05-17 15:46 | NUR ---
URINE CUP GIVEN AT THIS TIME.
[2019-05-17 15:57] LABS: ALBUMIN 3.7 g/dL (3.4-5.0); ANION GAP 5 mmol/L (5-15); CALCIUM 7.9 mg/dL (8.5-10.1); CHLORIDE 117 mmol/L (98-107); CREATININE 0.79 mg/dL (0.55-1.02); SALICYLATE LEVEL 2.6 mg/dL (2.8-20.0)
--- NOTE | 2019-05-17 16:03 | NUR ---
water provided. pt states"i'll give urine sample soon."
--- NOTE | 2019-05-17 16:04 | NUR ---
GENERAL CONTRACTOR AT BEDSIDE TO EVALUATE AT THIS TIME.
[2019-05-17] MEDS ORDERED: HALOPERIDOL 0.5 MG TABLET PO PRN (16:30)
--- NOTE | 2019-05-17 17:02 | NUR ---
MEAL TRAY ORDERED AT THIS TIME.
--- NOTE | 2019-05-17 17:45 | NUR ---
PT AMB TO BR WITH STEADY GAIT. URINE CUP GIVEN.
--- NOTE | 2019-05-17 18:00 | NUR ---
MEAL TRAY PROVIDED AT THIS TIME.
--- NOTE | 2019-05-17 18:14 | NUR ---
UA SENT AT THIS TIME.
[2019-05-17 18:32] LABS: AMPHETAMINE SCREEN, URINE Negative (Negative); BARBITURATE SCREEN, URINE Negative (Negative); BENZODIAZEPINE SCREEN, URINE Negative (Negative); CANNABINOID SCREEN, URINE Positive (Negative); COCAINE SCREEN, URINE Negative (Negative); METHADONE SCREEN, URINE Negative (Negative); OPIATE SCREEN, URINE Negative (Negative)
--- NOTE | 2019-05-17 19:03 | NUR ---
REPORT GIVEN TO KYLE PEREZ.
[2019-05-17 19:48] LABS: BASOPHILS # (AUTO) 0.07 x10^3/uL (0-0.1); BASOPHILS % (AUTO) 1 % (0-1); EOSINOPHILS # (AUTO) 0.12 x10^3/uL (0-0.4); EOSINOPHILS % (AUTO) 2 % (1-7); LYMPHOCYTES # (AUTO) 2.72 x10^3/uL (1-3.4); LYMPHOCYTES % (AUTO) 37 % (22-44); MD NO; MEAN CORPUSCULAR HEMOGLOBIN 31.3 pg (27.0-34.8); MEAN CORPUSCULAR HGB CONC 33.1 g/dL (32.4-35.8); MEAN CORPUSCULAR VOLUME 94.6 fL (80-100); MEAN PLATELET VOLUME 8.1 fL (7.4-10.4); MONOCYTES # (AUTO) 0.42 x10^3/uL (0.2-0.8); MONOCYTES % (AUTO) 6 % (2-9); NEUTROPHILS # (AUTO) 3.96 x10^3/uL (1.8-6.8); NEUTROPHILS % (AUTO) 54 % (42-75); PLATELET COUNT 283 x10^3/uL (130-400); RED BLOOD COUNT 4.23 x10^6/uL (3.82-5.3); RED CELL DISTRIBUTION WIDTH 13.5 % (9.6-15.2)
[2019-05-17] MEDS ORDERED: RISPERIDONE 2 MG TABLET ONE (19:48)
[2019-05-17 20:02] VITALS: BP 111/88
[2019-05-17] MEDS ORDERED: RISPERIDONE 1 MG TABLET PO SCH (21:00)
== END 2019-05-17 20:35 ==
LOC: ED 16:35
DX: F32.9 Major depressive disorder, single episode, unspecified (principal); R45.851 Suicidal ideations
CPT/HCPCS: 36415; 80048; 80307; 82040; 85025; 99285

== ENCOUNTER 2019-05-17 20:40 | Inpatient (IN) | payer MEDICARE, OTHER ==
[~2019-05-17] VITALS: Ht 162.6 cm; Wt 78.4 kg
[2019-05-17 20:44] VITALS: BP 111/70
[2019-05-17 20:49] VITALS: BP 111/72
[2019-05-17] MEDS ORDERED: BISACODYL 10 MG SUPP PR PRN (21:00)
[2019-05-17] MEDS ORDERED: POLYETHYLENE GLYCOL 17 GM PACKET PO PRN (21:00)
[2019-05-17] MEDS ORDERED: ONDANSETRON ODT 4 MG PO PRN (21:00)
[2019-05-17] MEDS ORDERED: PLEASE ENTER HEIGHT AND WEIGHT MC SCH (21:30)
[2019-05-17 21:36] LABS: MICROSCOPIC INDICATED
[2019-05-17 21:42] LABS: ALANINE AMINOTRANSFERASE 19 U/L (12-78)
[2019-05-17 21:46] LABS: ALKALINE PHOSPHATASE 87 U/L (45-117)
[2019-05-17] MEDS: PRAZOSIN 1 MG CAPSULE PO SCH (22:00)
[2019-05-17] MEDS: NICOTINE 14MG/24 HR PATCH.TD24 TD SCH (22:00)
[2019-05-17 22:05] LABS: CULTURE INDICATED? NO
[2019-05-17 22:23] VITALS: BP 111/72
[2019-05-17 22:47] LABS: ALBUMIN 3.8 g/dL (3.4-5.0)
[2019-05-17 22:51] LABS: FREE T4 (FREE THYROXINE) 1.22 ng/dL (0.76-1.46)
[2019-05-17 23:16] LABS: BILIRUBIN, DIRECT < 0.1 mg/dL (0.1-0.2); BILIRUBIN,TOTAL < 0.1 mg/dL (0.2-1.0)
[2019-05-18 07:38] VITALS: BP 107/68
[2019-05-18] MEDS: METHOCARBAMOL 500 MG TABLET PO PRN ×3 (08:51→21:05)
[2019-05-18] MEDS: NICOTINE 14MG/24 HR PATCH.TD24 TD SCH (08:51)
[2019-05-18] MEDS: LORazepam 0.5MG TABLET PO PRN ×3 (08:52→21:05)
[2019-05-18] MEDS: RISPERIDONE 0.5 MG TABLET PO SCH ×2 (12:12→20:34)
[2019-05-18] MEDS: ACETAMINOPHEN 325 MG TABLET PO PRN (17:09)
[2019-05-18 19:25] VITALS: BP 106/71
[2019-05-18] MEDS: PRAZOSIN 1 MG CAPSULE PO SCH (20:34)
[2019-05-18] MEDS: ZOLPIDEM 10MG TABLET PO PRN (20:34)
[2019-05-18] MEDS: hydrOXyzine 50MG TABLET PO PRN (20:34)
[2019-05-19] MEDS: LORazepam 0.5MG TABLET PO PRN ×3 (03:41→20:17)
[2019-05-19 07:42] VITALS: BP 106/65
[2019-05-19] MEDS: RISPERIDONE 0.5 MG TABLET PO SCH ×2 (08:18→20:17)
[2019-05-19] MEDS: ACETAMINOPHEN 325 MG TABLET PO PRN (08:18)
[2019-05-19] MEDS: DOCUSATE 100 MG CAPSULE PO PRN (08:18)
[2019-05-19] MEDS: METHOCARBAMOL 500 MG TABLET PO PRN ×2 (08:18→16:40)
[2019-05-19] MEDS: hydrOXyzine 50MG TABLET PO PRN ×2 (08:18→16:40)
[2019-05-19] MEDS: NICOTINE 14MG/24 HR PATCH.TD24 TD SCH (08:19)
[2019-05-19 19:00] VITALS: BP 123/84
[2019-05-19] MEDS: PRAZOSIN 1 MG CAPSULE PO SCH (20:17)
[2019-05-19] MEDS: ZOLPIDEM 10MG TABLET PO PRN (20:17)
[2019-05-20] MEDS: METHOCARBAMOL 500 MG TABLET PO PRN ×2 (06:14→21:03)
[2019-05-20] MEDS: LORazepam 0.5MG TABLET PO PRN ×2 (06:14→16:11)
[2019-05-20 07:30] VITALS: BP 110/74
[2019-05-20] MEDS: RISPERIDONE 0.5 MG TABLET PO SCH ×2 (08:10→21:04)
[2019-05-20] MEDS: NICOTINE 14MG/24 HR PATCH.TD24 TD SCH (08:25)
[2019-05-20] MEDS: hydrOXyzine 50MG TABLET PO PRN ×2 (08:25→21:03)
[2019-05-20] MEDS: ACETAMINOPHEN 325 MG TABLET PO PRN (16:02)
[2019-05-20 19:30] VITALS: BP 102/71
[2019-05-20] MEDS: ZOLPIDEM 10MG TABLET PO PRN (21:03)
[2019-05-20] MEDS: PRAZOSIN 1 MG CAPSULE PO SCH (21:03)
[2019-05-21] MEDS: METHOCARBAMOL 500 MG TABLET PO PRN ×2 (06:24→13:52)
[2019-05-21] MEDS: LORazepam 0.5MG TABLET PO PRN ×2 (06:24→13:53)
[2019-05-21] MEDS: ACETAMINOPHEN 325 MG TABLET PO PRN ×3 (06:24→20:21)
[2019-05-21 07:25] VITALS: BP 103/68
[2019-05-21] MEDS: RISPERIDONE 0.5 MG TABLET PO SCH ×2 (08:06→20:21)
[2019-05-21] MEDS: NICOTINE 14MG/24 HR PATCH.TD24 TD SCH (08:06)
[2019-05-21] MEDS: hydrOXyzine 50MG TABLET PO PRN ×2 (08:12→20:21)
[2019-05-21] MEDS: DOCUSATE 100 MG CAPSULE PO PRN (08:16)
[2019-05-21 19:44] VITALS: BP 102/69
[2019-05-21] MEDS: ZOLPIDEM 10MG TABLET PO PRN (20:21)
[2019-05-21] MEDS: PRAZOSIN 1 MG CAPSULE PO SCH (20:21)
[2019-05-22] MEDS: METHOCARBAMOL 500 MG TABLET PO PRN ×3 (00:41→20:05)
[2019-05-22] MEDS: LORazepam 0.5MG TABLET PO PRN ×3 (00:41→20:05)
[2019-05-22 08:25] VITALS: BP 106/71
[2019-05-22] MEDS: hydrOXyzine 50MG TABLET PO PRN ×2 (08:45→20:05)
[2019-05-22] MEDS: NICOTINE 14MG/24 HR PATCH.TD24 TD SCH (08:45)
[2019-05-22] MEDS: RISPERIDONE 0.5 MG TABLET PO SCH ×2 (08:45→20:05)
[2019-05-22] MEDS: ACETAMINOPHEN 325 MG TABLET PO PRN (12:03)
[2019-05-22 19:42] VITALS: BP 112/76
[2019-05-22] MEDS: ZOLPIDEM 10MG TABLET PO PRN (20:05)
[2019-05-22] MEDS: PRAZOSIN 1 MG CAPSULE PO SCH (20:06)
[2019-05-23] MEDS: METHOCARBAMOL 500 MG TABLET PO PRN ×2 (05:36→12:42)
[2019-05-23] MEDS: LORazepam 0.5MG TABLET PO PRN ×3 (05:36→20:07)
[2019-05-23 07:42] VITALS: BP 109/74
[2019-05-23] MEDS: RISPERIDONE 0.5 MG TABLET PO SCH ×2 (09:28→20:07)
[2019-05-23] MEDS: NICOTINE 14MG/24 HR PATCH.TD24 TD SCH (09:28)
[2019-05-23] MEDS: ACETAMINOPHEN 325 MG TABLET PO PRN ×2 (09:28→17:51)
[2019-05-23] MEDS: hydrOXyzine 50MG TABLET PO PRN ×2 (09:29→17:51)
[2019-05-23 19:29] VITALS: BP 118/85
[2019-05-23] MEDS: PRAZOSIN 1 MG CAPSULE PO SCH (20:07)
[2019-05-23] MEDS: ZOLPIDEM 10MG TABLET PO PRN (20:07)
[2019-05-24] MEDS: METHOCARBAMOL 500 MG TABLET PO PRN ×3 (04:47→20:23)
[2019-05-24] MEDS: LORazepam 0.5MG TABLET PO PRN ×3 (04:47→20:23)
[2019-05-24 07:50] VITALS: BP 119/78
[2019-05-24] MEDS: NICOTINE 14MG/24 HR PATCH.TD24 TD SCH (08:11)
[2019-05-24] MEDS: hydrOXyzine 50MG TABLET PO PRN ×2 (08:11→16:03)
[2019-05-24] MEDS: RISPERIDONE 0.5 MG TABLET PO SCH (08:11)
[2019-05-24] MEDS: ACETAMINOPHEN 325 MG TABLET PO PRN ×2 (08:11→16:04)
[2019-05-24 19:31] VITALS: BP 108/71
[2019-05-24] MEDS: RISPERIDONE 1 MG TABLET PO SCH (20:23)
[2019-05-24] MEDS: PRAZOSIN 1 MG CAPSULE PO SCH (20:24)
[2019-05-25] MEDS: METHOCARBAMOL 500 MG TABLET PO PRN ×3 (05:06→20:02)
[2019-05-25] MEDS: LORazepam 0.5MG TABLET PO PRN ×3 (05:06→20:02)
[2019-05-25 07:00] VITALS: BP 108/70
[2019-05-25] MEDS: NICOTINE 14MG/24 HR PATCH.TD24 TD SCH (08:15)
[2019-05-25] MEDS: hydrOXyzine 50MG TABLET PO PRN (08:15)
[2019-05-25] MEDS: RISPERIDONE 1 MG TABLET PO SCH ×2 (08:16→20:02)
[2019-05-25] MEDS: ACETAMINOPHEN 325 MG TABLET PO PRN (08:25)
[2019-05-25 19:30] VITALS: BP 102/67
[2019-05-25] MEDS: ZOLPIDEM 10MG TABLET PO PRN (20:02)
[2019-05-25] MEDS: PRAZOSIN 1 MG CAPSULE PO SCH (20:02)
[2019-05-26] MEDS: METHOCARBAMOL 500 MG TABLET PO PRN ×3 (05:06→20:52)
[2019-05-26] MEDS: LORazepam 0.5MG TABLET PO PRN ×3 (05:06→20:52)
[2019-05-26 07:44] VITALS: BP 109/75
[2019-05-26] MEDS: RISPERIDONE 1 MG TABLET PO SCH ×2 (08:31→20:53)
[2019-05-26] MEDS: NICOTINE 14MG/24 HR PATCH.TD24 TD SCH (08:31)
[2019-05-26] MEDS: ACETAMINOPHEN 325 MG TABLET PO PRN ×2 (08:36→17:21)
[2019-05-26] MEDS: hydrOXyzine 50MG TABLET PO PRN ×2 (08:36→17:20)
[2019-05-26 20:00] VITALS: BP 104/71
[2019-05-26] MEDS: PRAZOSIN 1 MG CAPSULE PO SCH (20:52)
[2019-05-26] MEDS: ZOLPIDEM 10MG TABLET PO PRN (20:53)
[2019-05-27] MEDS: LORazepam 0.5MG TABLET PO PRN ×3 (05:26→20:17)
[2019-05-27] MEDS: ACETAMINOPHEN 325 MG TABLET PO PRN ×2 (05:26→16:55)
[2019-05-27] MEDS: METHOCARBAMOL 500 MG TABLET PO PRN ×3 (05:26→20:17)
[2019-05-27 07:35] VITALS: BP 106/71
[2019-05-27] MEDS: RISPERIDONE 1 MG TABLET PO SCH ×2 (08:52→20:17)
[2019-05-27] MEDS: NICOTINE 14MG/24 HR PATCH.TD24 TD SCH (08:59)
[2019-05-27] MEDS: hydrOXyzine 50MG TABLET PO PRN (16:53)
[2019-05-27 19:31] VITALS: BP 102/70
[2019-05-27] MEDS: PRAZOSIN 1 MG CAPSULE PO SCH (20:17)
[2019-05-27] MEDS: ZOLPIDEM 10MG TABLET PO PRN (20:17)
[2019-05-28 07:31] VITALS: BP 99/62
[2019-05-28] MEDS: LORazepam 0.5MG TABLET PO PRN ×3 (07:35→20:21)
[2019-05-28] MEDS: METHOCARBAMOL 500 MG TABLET PO PRN ×3 (07:35→20:22)
[2019-05-28] MEDS: NICOTINE 14MG/24 HR PATCH.TD24 TD SCH (08:16)
[2019-05-28] MEDS: RISPERIDONE 1 MG TABLET PO SCH ×2 (08:17→20:22)
[2019-05-28] MEDS: hydrOXyzine 50MG TABLET PO PRN ×2 (10:42→19:35)
[2019-05-28] MEDS: ACETAMINOPHEN 325 MG TABLET PO PRN ×2 (10:42→17:38)
[2019-05-28 19:27] VITALS: BP 104/72
[2019-05-28] MEDS: PRAZOSIN 1 MG CAPSULE PO SCH (20:21)
[2019-05-28] MEDS: ZOLPIDEM 10MG TABLET PO PRN (20:21)
[2019-05-29] MEDS: LORazepam 0.5MG TABLET PO PRN ×3 (04:55→19:30)
[2019-05-29] MEDS: METHOCARBAMOL 500 MG TABLET PO PRN ×3 (04:55→19:30)
[2019-05-29 07:32] VITALS: BP 114/70
[2019-05-29] MEDS: hydrOXyzine 50MG TABLET PO PRN ×2 (08:21→14:31)
[2019-05-29] MEDS: ACETAMINOPHEN 325 MG TABLET PO PRN ×3 (08:21→20:33)
[2019-05-29] MEDS: NICOTINE 14MG/24 HR PATCH.TD24 TD SCH (08:22)
[2019-05-29] MEDS: RISPERIDONE 1 MG TABLET PO SCH ×2 (08:22→20:35)
[2019-05-29] MEDS: DOCUSATE 100 MG CAPSULE PO PRN (14:31)
[2019-05-29 20:00] VITALS: BP 105/68
[2019-05-29] MEDS: ZOLPIDEM 10MG TABLET PO PRN (20:34)
[2019-05-29] MEDS: PRAZOSIN 1 MG CAPSULE PO SCH (20:34)
[2019-05-30] MEDS: LORazepam 0.5MG TABLET PO PRN ×3 (05:34→17:20)
[2019-05-30] MEDS: METHOCARBAMOL 500 MG TABLET PO PRN ×3 (05:34→17:19)
[2019-05-30 07:30] VITALS: BP 108/70
[2019-05-30] MEDS: hydrOXyzine 50MG TABLET PO PRN ×3 (08:10→21:07)
[2019-05-30] MEDS: NICOTINE 14MG/24 HR PATCH.TD24 TD SCH (08:10)
[2019-05-30] MEDS: ACETAMINOPHEN 325 MG TABLET PO PRN ×3 (08:10→21:06)
[2019-05-30] MEDS: RISPERIDONE 1 MG TABLET PO SCH ×2 (08:11→21:06)
[2019-05-30 19:15] VITALS: BP 108/73
[2019-05-30] MEDS: PRAZOSIN 1 MG CAPSULE PO SCH (21:06)
[2019-05-30] MEDS: ZOLPIDEM 10MG TABLET PO PRN (21:07)
[2019-05-31] MEDS: METHOCARBAMOL 500 MG TABLET PO PRN ×3 (06:34→17:40)
[2019-05-31] MEDS: LORazepam 0.5MG TABLET PO PRN ×3 (06:35→17:40)
[2019-05-31 07:46] VITALS: BP 101/68
[2019-05-31] MEDS: hydrOXyzine 50MG TABLET PO PRN ×3 (09:08→20:12)
[2019-05-31] MEDS: NICOTINE 14MG/24 HR PATCH.TD24 TD SCH (09:08)
[2019-05-31] MEDS: RISPERIDONE 1 MG TABLET PO SCH ×2 (09:11→20:11)
[2019-05-31] MEDS: ACETAMINOPHEN 325 MG TABLET PO PRN ×3 (09:11→20:12)
[2019-05-31 19:56] VITALS: BP 94/49
[2019-05-31] MEDS: ZOLPIDEM 10MG TABLET PO PRN (20:12)
[2019-05-31] MEDS: PRAZOSIN 1 MG CAPSULE PO SCH (20:12)
[2019-06-01] MEDS: LORazepam 0.5MG TABLET PO PRN ×3 (05:06→18:00)
[2019-06-01] MEDS: METHOCARBAMOL 500 MG TABLET PO PRN ×3 (05:06→18:01)
[2019-06-01 07:32] VITALS: BP 93/57
[2019-06-01] MEDS: hydrOXyzine 50MG TABLET PO PRN ×3 (08:12→20:17)
[2019-06-01] MEDS: ACETAMINOPHEN 325 MG TABLET PO PRN ×3 (08:12→20:17)
[2019-06-01] MEDS: RISPERIDONE 1 MG TABLET PO SCH ×2 (08:13→20:17)
[2019-06-01] MEDS: NICOTINE 14MG/24 HR PATCH.TD24 TD SCH (08:27)
[2019-06-01 19:15] VITALS: BP 108/75
[2019-06-01] MEDS: DOCUSATE 100 MG CAPSULE PO PRN (20:17)
[2019-06-01] MEDS: PRAZOSIN 1 MG CAPSULE PO SCH (20:17)
[2019-06-01] MEDS: ZOLPIDEM 10MG TABLET PO PRN (20:17)
[2019-06-02] MEDS: LORazepam 0.5MG TABLET PO PRN (05:18)
[2019-06-02] MEDS: METHOCARBAMOL 500 MG TABLET PO PRN ×2 (05:18→12:28)
[2019-06-02 07:31] VITALS: BP 101/69
[2019-06-02] MEDS: NICOTINE 14MG/24 HR PATCH.TD24 TD SCH (08:22)
[2019-06-02] MEDS: RISPERIDONE 1 MG TABLET PO SCH (08:22)
[2019-06-02] MEDS: hydrOXyzine 50MG TABLET PO PRN (08:22)
[2019-06-02] MEDS: ACETAMINOPHEN 325 MG TABLET PO PRN (08:38)
== END 2019-06-02 12:50 | disposition home or self-care (01) | DRG 885 ==
LOC: 3E 20:41
PROVIDERS: ADMIT Psychiatry & Neurology Psychosomatic Medicine; ATTEND Psychiatry & Neurology Psychosomatic Medicine
DX: F31.5 Bipolar disorder, current episode depressed, severe, with psychotic features (principal); R45.851 Suicidal ideations; F41.1 Generalized anxiety disorder; F43.10 Post-traumatic stress disorder, unspecified; G47.00 Insomnia, unspecified; F17.210 Nicotine dependence, cigarettes, uncomplicated; R31.9 Hematuria, unspecified; Z81.8 Family history of other mental and behavioral disorders; Z98.51 Tubal ligation status; Z79.899 Other long term (current) drug therapy; Z88.4 Allergy status to anesthetic agent; Z91.018 Allergy to other foods
CPT/HCPCS: 36415; 80076; 81001; 82607; 84439; 84443; 84703; Q0162

== ENCOUNTER 2020-03-03 14:39 | Emergency (ER) | payer MEDICARE ==
[~2020-03-03] VITALS: Ht 165.1 cm; Wt 60.0 kg
--- NOTE | 2020-03-03 14:44 | NUR ---
PER EMS, PT UNCOOPERATIVE W/ ANSWERING THEIR QUESTIONS. PER ED PROVIDER, PT SOMEWHAT UNCOOPERATIVE W/ QUESTIONS. PT UNWILLING TO ANSWER THIS RN'S QUESTIONS, ONLY STATES NAME AND "I'M DRUNK". PT NOW VOMITING FLUID AND DIGESTED FOOD. EMESIS BAG PROVIDED. PT IN SITTING POSTITION. SIDE RAILS UP X2.
--- NOTE | 2020-03-03 14:48 | NUR ---
ED TECHS AT BS FOR BREATHALYZER; UNSUCCESSFUL
--- NOTE | 2020-03-03 14:57 | NUR ---
PT ENDORSED TO BREAK RN
--- NOTE | 2020-03-03 15:10 | NUR ---
TASK RN: PT RESTING IN [place] W EYES CLOSED, EVEN/REGULAR RESPIRATIONS NOTED. PT ARROUSABLE TO PHYSICAL STIM AND FOLLOWS SIMPLE COMMANDS. AIRWAY PATENT. UNABLE TO COMPLETE BREATHALYZER D/T NON-COMPLIANCE. ERP AWARE. NO ORDER FOR ETOH BLOOD DRAW. FSBG BY [facility] 120.
--- NOTE | 2020-03-03 15:20 | NUR ---
TASK RN: O2 PLACED ON PATIENT FOR DESAT. IMPROVED SPO2 W SUPPLEMENTAL O2. PT REMOVED NC ONCE RN LEFT ROOM. NOW REFUSING TO WEAR NC. PT REMAINS EASILY ARROUSABLE, PWD. RR WNL.
--- NOTE | 2020-03-03 15:25 | NUR ---
PT REPORT FROM JHONATHAN CORTEZ RN. PT RESTING ON [facility]. RESP EVEN & UNLABORED.
--- NOTE | 2020-03-03 15:38 | NUR ---
SENIOR WEB APPLICATIONS DEVELOPER AT BS FOR BREATHALYZER; UNSUCCESSFUL
--- NOTE | 2020-03-03 16:10 | NUR ---
PT SLEEPING; EVEN CHEST RISE & FALL NOTED. O2 NC LYING ON CHEST; O2 SAT 91% RA. SIDE RAILS UP X2.
--- NOTE | 2020-03-03 16:33 | NUR ---
BREATHALYZER COMPLETED PER FIREMAN: 0.339
--- NOTE | 2020-03-03 17:50 | NUR ---
PT ENDORSED TO BREAK RN.
--- NOTE | 2020-03-03 18:30 | NUR ---
PT REPORT FROM CHRIS BOYER. PT ASLEEP.
--- NOTE | 2020-03-03 19:25 | NUR ---
PT AMBULATORY TO [facility] W/ STEADY GAIT. LACIE SNYDER AWARE.
--- NOTE | 2020-03-03 19:41 | NUR ---
MULTIPLE MEDS LISTED IN PT'S CHART HX; PT DENIES TAKING PRESCRIPTION MEDS
[2020-03-03 19:44] VITALS: BP 92/63
== END 2020-03-03 19:55 | disposition home or self-care (01) ==
LOC: ED 16:50
DX: F10.229 Alcohol dependence with intoxication, unspecified (principal); Y90.0 Blood alcohol level of less than 20 mg/100 ml; Z88.6 Allergy status to analgesic agent
CPT/HCPCS: 99285

== ENCOUNTER 2020-04-05 16:05 | Emergency (ER) | payer MEDICARE ==
[~2020-04-05] VITALS: Ht 162.6 cm; Wt 67.0 kg
[~2020-04-05 16:05] MED LIST changes: +METH-639 PO; -METH500T7 PO
[2020-04-05] MEDS ORDERED: THIAMINE 100 MG/ML, 2ML IM ONE (17:00)
[2020-04-05] MEDS ORDERED: CEFAZOLIN 1,000 MG IM ONE (17:00)
[2020-04-05] MEDS ORDERED: DIPH,PERTUSS(ACELL),TET VAC/PF 0.5 ML IM-VACC ONE ×2 (17:00→17:19)
--- NOTE | 2020-04-05 17:01 | NUR ---
IRRIGATION UNDERWAY FOR PT'S WOUNDS. PT TOLERATING WELL.
[2020-04-05] MEDS ORDERED: THIAMINE 100 MG/ML, 2ML ONE (17:18)
[2020-04-05] MEDS ORDERED: CEFAZOLIN 1,000 MG ONE (17:19)
[2020-04-05 17:25] LABS: ALBUMIN 3.6 g/dL (3.4-5.0); ANION GAP 9 mmol/L (5-15); CALCIUM 8.3 mg/dL (8.5-10.1); CHLORIDE 110 mmol/L (98-107); CREATININE 0.75 mg/dL (0.55-1.02)
--- NOTE | 2020-04-05 17:25 | NUR ---
CALL TO PHARMACY REGARDING IM INJECTIONS. NO SPECIAL CONSIDERATIONS FOR THESE MEDICATIONS PER PHARMACY.
--- NOTE | 2020-04-05 17:33 | NUR ---
MEDICATION ADMINISTRATION, REMAINDER OF MEDS FOLLOWING PT RETURN FROM CT.
--- NOTE | 2020-04-05 17:52 | NUR ---
PT UP TO BEDSIDE COMMODE WITH RN STANDBY. PT BACK IN BED.
--- NOTE | 2020-04-05 18:12 | NUR ---
CALL TO PHARMACY REGARDING NUMBING MEDICATION CARBOCAINE.
--- NOTE | 2020-04-05 18:39 | NUR ---
AWAITING SUTURES FROM OR.
--- NOTE | 2020-04-05 18:58 | NUR ---
SUTURES RETRIEVED FROM OR BY HOT WOUND SPRING PRODUCTION SUPERVISOR. GIVEN TO SALINA MUNOZ PA. PT REMAINS SLEEPING MOSTLY. NAD NOTED.
--- NOTE | 2020-04-05 19:05 | NUR ---
REPORT TO CHRIS LEON.
--- NOTE | 2020-04-05 19:21 | NUR ---
RECEIVED REPORT FROM CHRIS GARCIA. PT RESTING ON [facility]. NADN. VSS. KENDALL HOGAN AT BEDSIDE FOR SUTURE PLACEMENT.
--- NOTE | 2020-04-05 19:58 | NUR ---
PT PROVIDED W/ SANDWICH.
--- NOTE | 2020-04-05 20:32 | NUR ---
PT SLEEPING ON [facility]. NADN. FAIRCHILD.
--- NOTE | 2020-04-05 21:06 | NUR ---
REPORT GIVEN TO CLEVELAND WRIGHT RN.
--- NOTE | 2020-04-05 21:44 | NUR ---
Assumed patient care. Pt Alert, states she "I am mother karson RN, and doctor and psychiatrist. Just get me to the 4th floor and to NEMS." VSS, pillow given. PO fluids given. Dressing to face. Pt safe in bed at this time. Will monitor.
--- NOTE | 2020-04-05 22:26 | NUR ---
Pt resting calmly at this time. On monitor, free of harm. Call light in reach. Patient needs met.
--- NOTE | 2020-04-05 23:57 | NUR ---
Pt resting, calm, no changes. VSS. Non labored breathing, no distress.
--- NOTE | 2020-04-06 02:13 | NUR ---
Road tested patient. Pt ambulatory around hallway and steady on feet. Pt denies being lightheaded or dizzy. Tolerating PO fluids. Will monitor.
[2020-04-06] MEDS ORDERED: ACETAMINOPHEN 500 MG TABLET ONE (03:53)
[2020-04-06 04:09] VITALS: BP 121/80
--- NOTE | 2020-04-06 04:10 | NUR ---
Pt dc'd with written and verbal instuctions. Pt wanted to clean own face, wash cloths given, pt in bathroom and washed face. Wound dressed with 4x4. Pt states understanding of DC instuctions. Pt medicated per order and juice given per patient request. Pt ambulatory out of ed without difficulty and taxi voucher given. Pt left with all belongings.
[2020-04-06] MEDS ORDERED: ACETAMINOPHEN 500 MG TABLET PO ONE (04:30)
== END 2020-04-06 04:16 | disposition home or self-care (01) ==
LOC: ED 18:40
DX: S01.81XA Laceration without foreign body of other part of head, initial encounter (principal); F10.229 Alcohol dependence with intoxication, unspecified; R94.31 Abnormal electrocardiogram [ECG] [EKG]; W01.0XXA Fall on same level from slipping, tripping and stumbling without subsequent striking against object, initial encounter; Y90.0 Blood alcohol level of less than 20 mg/100 ml; Y93.89 Activity, other specified; Y92.89 Other specified places as the place of occurrence of the external cause; Y99.8 Other external cause status
CPT/HCPCS: 12052; 36415; 70486; 80048; 80320; 82040; 90471; 90715; 93005; 96372; 99285; J0690; J3411; G0480

== ENCOUNTER 2020-07-05 15:13 | Emergency (ER) | payer MEDICAID, MEDICARE ==
[~2020-07-05] VITALS: Ht 170.2 cm; Wt 80.0 kg
--- NOTE | 2020-07-05 15:20 | NUR ---
THIS IS A 55 YEAR OLD FEMALE WITH A HX OF CHRONIC BACK PAIN, UTI'S, PTSD, BIPOLAR, ETOH ABUSE FOR ETOH. PT WAS AT [employer] AND WAS "DRINKING A GALLON OF ETOHAND DANCING". PT IS ALERT TO SELF, SLEEPING, OPENS EYES TO NAME. PT PLACED ON CONTINOUS SP02 AND CYCLE VS.
--- NOTE | 2020-07-05 15:21 | NUR ---
POC 105 IN ROUTE
--- NOTE | 2020-07-05 16:12 | NUR ---
PT SLEEPING RESP EVEN AND UNLABORED
--- NOTE | 2020-07-05 16:26 | NUR ---
Note hapat in EDM - 07/05/20 at 1636 by RICARDO Admitting hospitalist at bedside. Notified her that pt just called director executive communications light with c/o itching on inside of ears and over top of head with most of V[place] gtt infused, no hives, no respiratory compromise with c/o.
--- NOTE | 2020-07-05 16:41 | NUR ---
DISCUSSED LOW B/P WITH MD, ORDERS RECEIVED
[2020-07-05 16:47] LABS: BASOPHILS % (AUTO) 1 % (0-1); EOSINOPHILS % (AUTO) 3 % (1-7); LYMPHOCYTES % (AUTO) 31 % (22-44); MEAN CORPUSCULAR HEMOGLOBIN 31.5 pg (27.0-34.8); MEAN CORPUSCULAR HGB CONC 33.3 g/dL (32.4-35.8); MEAN PLATELET VOLUME 7.1 fL (7.4-10.4); MONOCYTES % (AUTO) 6 % (2-9); NEUTROPHILS % (AUTO) 60 % (42-75); PLATELET COUNT 209 x10^3/uL (130-400); RED BLOOD COUNT 4.43 x10^6/uL (3.82-5.3)
--- NOTE | 2020-07-05 16:47 | NUR ---
UP TO BATHROOM WITH ONE ASSIST, GAIT UNSTEADY, BACK TO BED, BED RAILS X 2
[2020-07-05 16:48] LABS: MD NO
[2020-07-05 16:49] LABS: ALBUMIN 3.3 g/dL (3.4-5.0); ANION GAP 7 mmol/L (5-15); CALCIUM 7.6 mg/dL (8.5-10.1); CHLORIDE 114 mmol/L (98-107); CREATININE 0.59 mg/dL (0.55-1.02)
[2020-07-05] MEDS ORDERED: SODIUM CHLORIDE 0.9% 1,000ML IVBOLUS ONE (17:00)
--- NOTE | 2020-07-05 18:02 | NUR ---
PT SLEEPING, RESP EVEN AND UNLABORED.
[2020-07-05 18:53] VITALS: BP 98/66
--- NOTE | 2020-07-05 18:53 | NUR ---
REPORT TO JOSE PEREZ, PLAN OF CARE DISCUSSED
--- NOTE | 2020-07-05 18:54 | NUR ---
RECEIVED BS REPORT FROM CHRIS MATHEW TO ASSUME CARE OF PT. AT THIS TIME. PT. RESTING ON GURNEY RIGHT SIDE LYING WITH EYES CLOSED. OPENS EYES TO VERBAL STIMULI BUT APPEARS TO FALL BACK ASLEEP QUICKLY. ALL SAFETY MEASURES OBSERVED.
--- NOTE | 2020-07-05 19:49 | NUR ---
PT. RESTING ON GURNEY WITH EYES CLOSED. EVEN, NON-LABORED RESPIRATIONS VISIBLE. ALL SAFETY MEASURES MAINTAINED.
--- NOTE | 2020-07-05 20:07 | NUR ---
PT. REMAINS VERY SLEEPY. ATTEMPTED TO GET PT. TO EAT SANDWICH PROVIDED. PT. REMAINS VERY DROWSY AND UNABLE TO KEEP EYES OPEN LONG ENOUGH TO EAT AT THIS TIME.
--- NOTE | 2020-07-05 20:37 | NUR ---
PT. DID WAKE AND STARTED TO EAT ABOUT 1/4 OF SANDWICH PROVIDED. PT. REMAINS VERY DROWSY. ALL SAFETY MEASURES MAINTAINED.
--- NOTE | 2020-07-05 21:15 | NUR ---
PT WAKES UP WHEN I COME IN THE ROOM. SPEAKING INCOHERENTLY BUT DOES FOLLOW COMMANDS.
--- NOTE | 2020-07-05 21:15 | NUR ---
LATE ENTRY: REPORT TO CHRIS TOVAR. PT. RESTING ON GURNY WITH BLANKETS OVER HEAD. PT. CONTINUES TO REMOVE ALL MONITORS DESPITE EDUCATION TO LEAVE THEM ON. SAFETY MEASURES MAINTAINED.
--- NOTE | 2020-07-05 23:00 | NUR ---
PT UP AND AMBULATORY IN ROOM. PT WALKED TO BATHROOM WITH A STEADY GAIT. PT STATES SHE IS READY TO LEAVE. PT A+OX4. PIV REMOVED AND PT DISCHARGED.
== END 2020-07-05 21:00 ==
LOC: ED 17:05 → EDIP 17:12 → UNDOADMIN 17:12 → ED 21:00
DX: F10.120 Alcohol abuse with intoxication, uncomplicated (principal); Y90.0 Blood alcohol level of less than 20 mg/100 ml
CPT/HCPCS: 36415; 80048; 80320; 82040; 85025; 99285; J7030; G0378; G0480

== ENCOUNTER 2020-09-28 18:27 | Observation (INO) | payer MEDICAID ==
[~2020-09-28] VITALS: Ht 175.3 cm; Wt 70.0 kg
--- NOTE | 2020-09-28 18:28 | NUR ---
HANG SOCIAL WORK TO BEDSIDE. PT STATES "I WANT TO KILL MYSELF BECAUSE MY WANTS TO KILL ME, I'M BIPOLAR, AND HAVE DEPRESSION ANXIETY" PT STATES "IM LEGAL 1999, AM I GOING TO THE 4TH FLOOR OR NOT" PT REFERING TO PSYCH UNIT PT STATES SHE LIVES IN THE NURSING HOME. PT STATES "I DON'T HAVE TO ANSWER YOUR SI QUESTIONS I'M A PSYCHOLOGIST"
[2020-09-28 18:33] VITALS: BP 90/54
--- NOTE | 2020-09-28 18:50 | NUR ---
PT BELONGINGS COLLECTED, PLACED IN PT BAG, STICKERED, AND PLACED IN LOCKER. VSS. NADN. SAFETY PRECAUTIONS IN PLACE
--- NOTE | 2020-09-28 18:57 | NUR ---
Pt belongings locked up in psych belongings closet.
[2020-09-28 19:22] LABS: BASOPHILS % (AUTO) 1 % (0-1); EOSINOPHILS % (AUTO) 4 % (1-7); LYMPHOCYTES % (AUTO) 40 % (22-44); MEAN CORPUSCULAR HGB CONC 33.9 g/dL (32.4-35.8); MEAN PLATELET VOLUME 7.4 fL (7.4-10.4); MONOCYTES % (AUTO) 7 % (2-9); NEUTROPHILS % (AUTO) 48 % (42-75); PLATELET COUNT 231 x10^3/uL (130-400); RED BLOOD COUNT 4.28 x10^6/uL (3.82-5.3)
--- NOTE | 2020-09-28 19:32 | NUR ---
Report given to CHRIS Araujo no further questions at this time.
--- NOTE | 2020-09-28 20:26 | NUR ---
PT PROVIDED SANDWICH AND WATER PER REQUEST. IN LINE OF SIGHT OF SITTER. NO OTHER NEEDS AT THIS TIME
[2020-09-28 21:11] LABS: ALBUMIN 2.8 g/dL (3.4-5.0); CALCIUM 8.2 mg/dL (8.5-10.1); CHLORIDE 112 mmol/L (98-107)
[2020-09-28 21:28] LABS: ANION GAP 8 mmol/L (5-15); CREATININE 0.76 mg/dL (0.55-1.02); SALICYLATE LEVEL 4.5 mg/dL (2.8-20.0)
[2020-09-28 21:41] LABS: AMPHETAMINE SCREEN, URINE Negative (Negative); BARBITURATE SCREEN, URINE Negative (Negative); BENZODIAZEPINE SCREEN, URINE Negative (Negative); CANNABINOID SCREEN, URINE Positive (Negative); COCAINE SCREEN, URINE Negative (Negative); METHADONE SCREEN, URINE Negative (Negative); OPIATE SCREEN, URINE Negative (Negative)
--- NOTE | 2020-09-28 22:00 | NUR ---
PT RESTING IN [facility]. RESP EVEN/UNLABORED, IN LINE OF SIGHT OF KATI
--- NOTE | 2020-09-28 23:37 | NUR ---
PT MOVED OVER TO HOSPITAL BED, NO OTHER NEEDS AT THIS TIME. IN LINE OF SIGHT OF SITTER
--- NOTE | 2020-09-29 01:21 | NUR ---
REPORT GIVEN TO CHRIS TORRES
--- NOTE | 2020-09-29 02:30 | NUR ---
PT RESTING ON HOSPITAL BED RESP EVEN AND UNLABORED NADN, VSS NO NEEDS AT THIS TIME, SITTER IN SIGHT
--- NOTE | 2020-09-29 03:50 | NUR ---
PT AWAKE AND INTERACTING WITH STAFF, PT ABLE TO PARTICIPATE IN BREATHALYZER, 0.00.
--- NOTE | 2020-09-29 03:53 | NUR ---
PT AWAKE AND INTERACTING WITH STAFF, PROVIDER TO BEDSIDE FOR EVAL
[2020-09-29] MEDS ORDERED: POTASSIUM CHLORIDE 20 MEQ TAB.ER.PRT PO ONE (04:00)
[2020-09-29] MEDS ORDERED: POTASSIUM CHLORIDE 20 MEQ TAB.ER.PRT ONE (04:00)
--- NOTE | 2020-09-29 04:25 | NUR ---
EIV RN: [facility] WRONG INSURANCE.
--- NOTE | 2020-09-29 04:29 | NUR ---
EVI RN: PACKET FAXED TO [facility], [facility], AND [facility]. AWAITING CONFIRMAITON FAX.
--- NOTE | 2020-09-29 04:46 | NUR ---
DONNA ([facility]) ACCEPTING
--- NOTE | 2020-09-29 04:51 | NUR ---
REPORT TO DONNA PEREZ ALL QUESTIONS ADDRESSED.
--- NOTE | 2020-09-29 05:45 | NUR ---
PT RESTING ON GURNEY RESP EVEN AND UNLABORED NADN, VSS NO NEEDS AT THIS TIME. SITTER IN SIGHT
--- NOTE | 2020-09-29 06:59 | NUR ---
bedside report to Helmi/ Scooby at this time, all questions addressed. transfer of care completed
--- NOTE | 2020-09-29 06:59 | NUR ---
BEDSIDE REPORT RECEIVED FROM GENOVEVA PEREZ. PT RESTING ON HOSPITAL BED, RESPS EVEN AND UNLABORED, ALL SECURITY PRECAUTIONS IN PLACE, SITTER WITHIN VIEW.
--- NOTE | 2020-09-29 07:55 | NUR ---
[facility] belongings [facility], which includes purse, shoes, and clothing. pt provided with socks, ambulatory with steady gait, [facility] to [facility] to [facility]. Nurse to nurse report already given by CHRIS Krishnamurthy, pt had no complaint at time of discharge. pt a&o, resps even and unlabored, darren.
== END 2020-09-29 08:01 ==
LOC: ED 18:57 → EDIP 21:44
PROVIDERS: ADMIT Emergency Medicine; ATTEND Emergency Medicine
DX: R45.851 Suicidal ideations (principal); F31.9 Bipolar disorder, unspecified; F10.120 Alcohol abuse with intoxication, uncomplicated; F15.90 Other stimulant use, unspecified, uncomplicated; Z91.14 Patient's other noncompliance with medication regimen
CPT/HCPCS: 36415; 80048; 80299; 80307; 80320; 80329; 82040; 85025; 99284; G0378; G0480

== ENCOUNTER 2020-11-24 16:55 | Emergency (ER) | payer MEDICAID ==
[~2020-11-24] VITALS: Ht 162.6 cm; Wt 79.8 kg
[2020-11-24 20:38] VITALS: BP 121/61
== END 2020-11-24 20:40 | disposition home or self-care (01) ==
LOC: ED 20:20
DX: F10.129 Alcohol abuse with intoxication, unspecified (principal); R94.31 Abnormal electrocardiogram [ECG] [EKG]; Y90.0 Blood alcohol level of less than 20 mg/100 ml